=== PATIENT | male | born 1955 | race Caucasian/White ===

== ENCOUNTER 2025-01-07 10:05 | Day surgery (SDC) | payer MEDICARE, OTHER, SELFPAY ==
[2025-01-07] VITALS (11 sets, daily range): BP systolic 139–159; BP diastolic 65–89; BMI 39.4
[2025-01-07 10:31] LABS: Hematocrit 48.3 % (39.0-52.0); Hemoglobin 15.9 g/dL (13.0-18.0); Mean Corp Hgb Conc. 32.9 g/dL (33.0-37.0); Mean Corpuscular Volume 84.0 fL (80.0-94.0); Platelet Count 180 10^3/uL (130-400); Red Cell Dist. Width 16.3 % (11.5-14.5)
[2025-01-07 10:42] LABS: INR 1.06; PT 14.1 Sec (11.4-14.6)
[2025-01-07 10:43] LABS: APTT 27.5 Sec (23.4-35.0)
[2025-01-07] MEDS: NSS 395 ML IV (10:55)
[2025-01-07 10:56] LABS: Glucose - Point of Care 135 mg/dl (70-99)
[2025-01-07 11:01] LABS: ALT (SGPT) 18 U/L (0-50); AST (SGOT) 21 U/L (17-59); Albumin 4.5 g/dl (3.5-5.0); Alkaline Phosphatase 59 U/L (38-126); Blood Urea Nitrogen 21 mg/dl (9-20); Calcium 9.9 mg/dl (8.4-10.2); Carbon Dioxide 27 mmol/L (22-30); Chloride 108 mmol/L (98-107); Estimated Creatinine Clearance > 125 ml/min; Glucose 142 mg/dl (70-99); Potassium 4.4 mmol/L (3.5-5.1); Sodium 141 mmol/L (135-145); Total Protein 7.5 g/dl (6.3-8.2); eGFR > 60.00
[2025-01-07 14:25] LABS: ACT-LR - POC 289 Seconds (116-155)
--- NOTE | 2025-01-07 17:12 | ITS.CL.CATH ---
Public Safety Telecommunicator - Catheterization
Cardiac Catheterization
Procedure Report:
LEFT HEART CATHETERIZATION
Date of Procedure: January 07, 2025
Referring: Juana Forte M.D.
PROCEDURES:
1. Left heart catheterization, coronary angiogram.
2. Moderate sedation.
3. Functional physiologic testing with IFR of RCA.
INDICATION: Progressive dyspnea on exertion with abnormal stress test as an outpatient.
ACCESS: Right radial artery, 6Fr. sheath, under US guidance.
HEMODYNAMICS : (mmHg)
AO (s/d) : 147/81
LVEDP : 26
No significant gradient across the aortic valve to suggest aortic stenosis.
CORONARY FINDINGS
Dominance: Right
Left Main Trunk (LMT): Large caliber vessel that gives rise to the LAD and LCx branches and there is mild diffuse atherosclerotic plaque.
Left Anterior Descending Artery (LAD): Large caliber vessel that gives off 2 major diagonal branches as it courses along the anterior inter-ventricular groove before wrapping around the cardiac apex. Moderately tortuous with mild diffuse
atherosclerotic plaque.
Left Circumflex Artery (LCx): Medium caliber vessel that gives off 2 major obtuse marginal (OM) branches as it courses along the atrio-ventricular (AV) groove. There is mild diffuse atherosclerotic plaque.
Right Coronary Artery (RCA): Large caliber dominant vessel that gives rise to the posterior descending artery (RPDA) and postero-lateral ventricular (RPLV) branches distally. The artery is moderately tortuous with 60% stenosis in the proximal
portion, 50% in the mid RCA. Distal RCA has 40% stenosis. There is mild diffuse atherosclerotic plaque otherwise. iFR was performed which was negative at 0.94.
HEMODYNAMIC ASSESSMENT OF THE RCA WITH A VOLCANO OMNI WIRE: The origin of the right coronary artery was cannulated with a 6 Fr JR4 guide catheter. Intravenous heparin was administered and the ACT was followed during the procedure. Two hundred
micrograms of intracoronary nitroglycerin was given through the guide catheter. A Stevenson Omni wire was advanced to the guide catheter tip and normalized just outside the guide catheter. The Omni wire was then carefully manipulated across the
stenosis in the proximal and mid RCA with the iFR above the ischemic threshold serially measuring 0.94, 0.95, 0.95. The Omni wire was then pulled back to the guide catheter where the Pd/Pa measured 1.0 confirming no baseline drift in pressure
readings
SEDATION: 47 minutes of procedural sedation was utilized. IV Midazolam and IV Fentanyl were administered. An independent medical administrative was present to assist with and help manage the patient's level of consciousness and physiologic status.
RADIATION SUMMARY: Fluoro Time (min): 6.4, Dose (mGy): 698, DAP (Gy.cm2) : 55.7
Closure Device: There were no immediate intra-procedural complications. The sheath was pulled in the optical laboratory mechanic and a vascular-band applied to the right wrist for radial artery hemostasis using the patent hemostasis technique.
CONCLUSIONS
1. RCA is moderately tortuous with 60% stenosis in the proximal portion, 50% in the mid RCA. Distal RCA has 40% stenosis. There is mild diffuse atherosclerotic plaque otherwise. iFR was performed which was negative at 0.94.
2. Mild diffuse atherosclerotic plaque in the left coronary arteries.
3. Elevated LVEDP at 26 mmHg.
RECOMMENDATIONS
1. Wean radial band per protocol. Monitor right hand perfusion and for bleeding from the radial site following removal of the vascular-band following trans-radial access.
2. Continue aggressive medical therapy and risk factor modification for secondary CAD prevention. Daily diuretic given elevated LVEDP with ongoing dyspnea on exertion due to concern for heart failure with preserved ejection fraction. Patient is
already on an SGLT2 inhibitor.
3. Hydrate with normal saline to mitigate the risk of contrast-induced acute kidney injury.
4. Follow-up with Dr. Juana Forte.
Martha Orozco MD, [facility], [facility]
Copy to: Juana Forte M.D. (senior staff consultant) and Audrey Araiza (PCP)
[2025-01-07] MEDS: LASIX 20 MG IV (17:44)
== END 2025-01-07 20:01 | disposition home or self-care (01) ==
LOC: CATH 10:05
PROVIDERS: ATTENDING PHYSICIAN Internal Medicine Interventional Cardiology; FAMILY PHYSICIAN Student in an Organized Health Care Education/Training Program; OTHER PHYSICIAN Internal Medicine Cardiovascular Disease
DX: I25.10 Atherosclerotic heart disease of native coronary artery without angina pectoris (principal); R06.09 Other forms of dyspnea; R94.39 Abnormal result of other cardiovascular function study; Z79.82 Long term (current) use of aspirin; Z79.899 Other long term (current) drug therapy; Z79.85 Long-term (current) use of injectable non-insulin antidiabetic drugs
CPT/HCPCS: 93799; 99152; 99153; 80053; 82962; 85027; 85347; 85610; 85730; 93458; C1769; C1894; Q9967